=== PATIENT | female | born 1950 | race Caucasian/White ===

== ENCOUNTER 2019-01-14 09:23 | Outpatient (CLI) | payer MEDICARE, BC, SELFPAY ==
--- NOTE | 2019-01-14 09:11 | DI.RAD_ITS ---
SYMPTOM/DIAGNOSIS: RT FOOT AND SHOULDER PAIN RIGHT FOOT: Comparison is made with 04/25/10. No fracture or dislocation is seen. There are mild degenerative changes of the first MTP joint. There has been previous first metatarsal surgery. No bony erosions or heel spurs are seen. IMPRESSION: Mild degenerative changes. RIGHT SHOULDER: There is mild spurring at the AC joint and glenohumeral joint. There is some narrowing of the glenohumeral joint. The humeral head appears normally positioned. No tendon or joint space calcifications are seen. IMPRESSION: Mild to moderate degenerative changes.
== END 2019-01-14 09:43 ==
PROVIDERS: Referring Provider Family Medicine; Visit Provider Student in an Organized Health Care Education/Training Program
DX: M25.511 Pain in right shoulder (principal); M79.671 Pain in right foot; M19.071 Primary osteoarthritis, right ankle and foot; M19.011 Primary osteoarthritis, right shoulder; M21.621 Bunionette of right foot; M75.81 Other shoulder lesions, right shoulder
CPT/HCPCS: 20610; 99202; 99204; 73030; 73630; J1040

== ENCOUNTER 2019-01-22 14:09 | Day surgery (SDC) | payer MEDICARE, BC, SELFPAY ==
--- NOTE | 2019-01-23 13:51 | W.PREOPHP ---
Documented by User: SAHRA Vasquez 01/27/19 11:44 Date of service: 01/22/19 Time of Service: 12:53 Assessment and Plan (1) Lois nguyen of right foot: Current visit: No Status: Chronic The patient is given a brief overview of the anticipated surgical procedure with complications and pertinent questions which I attempt to address to the best of my knowledge. Some of the questions I review with Dr. Marte the following day with him calling the patient to outline her mobility status and possible anticipated immobilization to include a post-op shoe. In his phone conversation he outlines that if the simple condylectomy does not provide enough correction then a longer duration of limited weightbearing would be required. He assures her that at the time of surgery crutches could be dispensed for additional comfort if needed. History of Present Illness Chief Complaint: right lateral foot pain Narrative: karl is a 68-year-old female patient of Dr. Marte's who relates a long history multiple years of right lateral forefoot pain that has been increasing in severity that requires her to buy shoes that have a generous toe box to avoid applying pressure on the callus and prominence of her fifth metatarsal head. Walking to the bathroom in the middle the night barefoot is especially troublesome secondary to her pain. Dr. Marte has recommended a simple lateral condylectomy to relieve her discomfort. Pertinent Surgical Information Denies previous medical history of: stroke, TIA, [place], use of sublingual nitroglycerin, GERD, seizures, diabetes, thyroid disease, sleep apnea, liver disease, hepatitis, hematologic disorders Denies previous complications from surgery or anesthesic agents with respect to high fever, prolonged vomiting and difficulty waking up Review of Systems Constitutional Denies fever(s) and Denies headache(s) ENT Denies headache(s), Denies nasal congestion, Denies nasal discharge and Denies sore throat Cardiovascular Denies chest pain, Denies chest pain with activity, Denies palpitations, Denies dyspnea on exertion, Denies orthopnea and Denies paroxysmal nocturnal dyspnea Respiratory Denies cough, Denies excessive phlegm production, Denies pain on inspiration, Denies dyspnea on exertion and Denies wheezing Gastrointestinal Denies abdominal pain, Denies melena, Denies hematochezia, Denies nausea and Denies vomiting Genitourinary Denies hematuria, Denies urinary frequency and Denies dysuria Comments: Denies burning sensation with urination Musculoskeletal Reports as per HPI Neurologic Denies headache(s) Psychiatric Denies anxiety and Denies depression Endocrine Denies palpitations Comments: Denies any unplanned weight changes Allergic/Immunologic Denies wheezing PFSH Medical History Tailor's bunion of right foot (Chronic) Right rotator cuff tendonitis (Chronic) Actinic keratitis (Acute) Hearing loss (Acute) History of gastroesophageal reflux (GERD) (Acute) Malignant melanoma (Acute) PVD (posterior vitreous detachment), left eye (Acute) Glaucoma (Chronic) Insomnia (Chronic) Surgical History History of tonsillectomy (Chronic) History of bunionectomy (Acute) History of liver biopsy (Acute ~08/28/12) History of trabeculectomy (Acute) Biopsy of breast Cholecystectomy (08/28/12) Dilation and curettage Extraction of cataract (06/09/13) Tonsillectomy and adenoidectomy Family History Mother Essential hypertension Heart disease Personal history of malignant neoplasm Father Diabetes Brother Diabetes Essential hypertension Hyperlipidemia Personal history of malignant neoplasm Brother Diabetes Essential hypertension Personal history of malignant neoplasm Maternal Grandmother History of glaucoma Social History Smoking/Tobacco Use Status: Never Alcohol Intake: current Alcohol Intake frequency: a few times a week Alcohol type: wine Drug use: Never Substance use type: does not use Details: alcohol: t-5 Do you feel safe at home: Yes Additional Social history: pt. reports foot pain is 0/10 when sitting, 9/10 on hard surface Meds Home Medications Medication Instructions Recorded Confirmed Type Timoptic 1 drp OU QAM script 01/03/13 01/27/19 History Travatan Z 1 drp OD QPM drp 01/03/13 01/27/19 History trazodone 50 mg tablet 75 mg PO QHS tab 01/14/19 01/27/19 History cholecalciferol (vitamin D3) 2,000 unit PO DAILY 01/23/19 01/27/19 History [Vitamin D3] acetaminophen 500 mg PO Q6H PRN PRN #60 tab 01/27/19 Rx hydrocodone-acetaminophen 1 tab PO Q6H PRN PRN #8 tab 01/27/19 Rx Allergies Allergy/AdvReac Type Severity Reaction Status Date / Time dorzolamide HCl [From Cosopt] Allergy Intermediate REDNESS Unverified 01/27/19 12:25 timolol maleate [From Cosopt] Allergy Intermediate REDNESS Unverified 01/27/19 12:25 brimonidine tartrate Allergy Unknown EYE REDNESS Unverified 01/27/19 12:25 [From Alphagan P] ibuprofen [From Motrin] AdvReac Severe Verified 01/27/19 12:25 ANIMAL DANDER Allergy Unknown Uncoded 01/27/19 12:25 GIANT RAGWEED Allergy Unknown Uncoded 01/27/19 12:26 GOOSE FEATHERS Allergy Unknown Uncoded 01/27/19 12:25 Exam Const General: cooperative HENMT Throat: posterior oropharynx normal Eyes General: appearance normal, both eyes and all related structures Conjunctivae: conjunctivae normal Sclera: sclerae normal Neck Neck: no JVD Carotids: normal carotid upstroke and no bruits Resp Effort & Inspection: normal respiratory effort and able to speak in complete sentences Auscultation: clear to auscultation bilaterally, no rales, no rhonchi and no wheezes Cardio Rate: regular rate Heart Sounds: S1 normal, S2 normal and no murmurs Bruits: no abdominal aortic bruits Pulses: normal peripheral pulses Other: No pulsatile mass noted with palpation over the abdominal aorta GI Palpation: soft and no hepatosplenomegaly Auscultation: normal bowel sounds General: No CVA tenderness Extrem General: no pedal edema Other: Normal sensation to light touch with normal palpable pulses.prominent callus with palpable tender calcific density without skin breakdown. Documented by User: Jarad Marte MD 01/28/19 06:02 [facility] Medical History Tailor's bunion of right foot (Chronic) Right rotator cuff tendonitis (Chronic) Actinic keratitis (Acute) Hearing loss (Acute) History of gastroesophageal reflux (GERD) (Acute) Malignant melanoma (Acute) PVD (posterior vitreous detachment), left eye (Acute) Glaucoma (Chronic) Insomnia (Chronic) Surgical History History of tonsillectomy (Chronic) History of bunionectomy (Acute) History of liver biopsy (Acute ~08/28/12) History of trabeculectomy (Acute) Biopsy of breast Cholecystectomy (08/28/12) Dilation and curettage Extraction of cataract (06/09/13) Tonsillectomy and adenoidectomy Family History Mother Essential hypertension Heart disease Personal history of malignant neoplasm Father Diabetes Brother Diabetes Essential hypertension Hyperlipidemia Personal history of malignant neoplasm Brother Diabetes Essential hypertension Personal history of malignant neoplasm Maternal Grandmother History of glaucoma Social History Smoking/Tobacco Use Status: Never Alcohol Intake: current Alcohol Intake frequency: a few times a week Alcohol type: wine Drug use: Never Substance use type: does not use Details: alcohol: t-5 Do you feel safe at home: Yes Additional Social history: pt. reports foot pain is 0/10 when sitting, 9/10 on hard surface Meds Home Medications Medication Instructions Recorded Confirmed Type Timoptic 1 drp OU QAM script 01/03/13 01/27/19 History Travatan Z 1 drp OD QPM drp 01/03/13 01/27/19 History trazodone 50 mg tablet 75 mg PO QHS tab 01/14/19 01/27/19 History cholecalciferol (vitamin D3) 2,000 unit PO DAILY 01/23/19 01/27/19 History [Vitamin D3] acetaminophen 500 mg PO Q6H PRN PRN #60 tab 01/27/19 Rx hydrocodone-acetaminophen 1 tab PO Q6H PRN PRN #8 tab 01/27/19 Rx Allergies Allergy/AdvReac Type Severity Reaction Status Date / Time dorzolamide HCl [From Cosopt] Allergy Intermediate REDNESS Unverified 01/27/19 12:25 timolol maleate [From Cosopt] Allergy Intermediate REDNESS Unverified 01/27/19 12:25 brimonidine tartrate Allergy Unknown EYE REDNESS Unverified 01/27/19 12:25 [From Alphagan P] ibuprofen [From Motrin] AdvReac Severe Verified 01/27/19 12:25 ANIMAL DANDER Allergy Unknown Uncoded 01/27/19 12:25 GIANT RAGWEED Allergy Unknown Uncoded 01/27/19 12:26 GOOSE FEATHERS Allergy Unknown Uncoded 01/27/19 12:25
== END 2019-01-22 14:29 ==
PROVIDERS: PCP Family Medicine; Visit Provider Student in an Organized Health Care Education/Training Program
DX: R69 Illness, unspecified (principal)

== ENCOUNTER 2019-01-27 11:48 | Day surgery (SDC) | payer MEDICARE, BC, SELFPAY ==
[2019-01-27 12:35] VITALS: BP 120/78; PULSE 49; RESP 16; TEMP 35.8; O2SAT 98
[2019-01-27] MEDS: Lactated Ringers 1,000 ML 80 ML IV (13:35)
--- NOTE | 2019-01-27 13:38 | W.PM.DSUDISC ---
Discharge Plan Disposition Patient Disposition: HOME Condition: Good Discharge Details Reason For Visit: R Bunionette Deformity Attending Provider: Jarad Marte Primary Care Provider: Skye Richard Home Meds and New Rx's Prescriptions: New hydrocodone-acetaminophen 5-325 mg tablet 1 tab PO Q6H PRN PRN (Reason: pain) Qty: 8 RF: 0 acetaminophen 500 mg tablet 500 mg PO Q6H PRN PRN (Reason: pain) Qty: 60 RF: 3 Continued trazodone 50 mg tablet 75 mg PO QHS RF: 0 Travatan Z 2.5 ML drops 1 drp OD QPM RF: 0 TIMOPTIC 2.5 ML drops 1 drp OU QAM RF: 0 cholecalciferol (vitamin D3) [Vitamin D3] 2,000 unit Capsule 2,000 unit PO DAILY RF: 0 Discharge Instructions Additional Instructions: Activity: You may weight bear as tolerated. You should keep the leg elevated as much as possible. You may wiggle your toes and move your hip and knee. You should use the post-op shoe when you are up and mobilizing, but may remove it when not and move your ankle/foot as tolerated. Dressings: You should keep the initial dressing on for at least 3 days. After 3 days, you may remove it and get it wet in the shower. You should keep it covered with a light gauze dressing or wrap until follow-up. Medications: - You should take Tylenol around the clock for baseline pain. - You have been prescribed a stronger narcotic, Hydrocodone, for breakthrough pain. Follow-up: 2 weeks Referrals: Jarad Marte MD [ [facility] STAFF PHYSICIAN] - Activity:: Elevate Remove Dressings/Wound Care:: 72 hours Shower/Bathe:: 72 hours Diet:: As Tolerated Discharge Orders Discharge Orders: Discharge Order (Routine); Ordered 01/27/19 Ordered By: Jarad Marte DS: Diagnosis Discharge Diagnosis (1) Tailor's bunion of right foot: Status: Chronic
[2019-01-27] MEDS: ceFAZolin 2 GM/50 ML BAG IVPB (13:39)
[2019-01-27] MEDS: Bupivacaine 0.5% Pres-Free 30 ML VIAL (13:53)
[2019-01-27] MEDS: Bupivacaine LIPOSOME/PF 133 MG/10 ML VIAL IJ (14:07)
[2019-01-27 14:35] VITALS: BP 101/51; PULSE 68; RESP 15; TEMP 36.4; O2SAT 95
[2019-01-27 14:40] VITALS: BP 104/72; PULSE 67; RESP 17; TEMP 36.4; O2SAT 98
[2019-01-27 14:45] VITALS: BP 114/61; PULSE 66; RESP 12; TEMP 36.4; O2SAT 98
[2019-01-27 15:00] VITALS: BP 114/70; PULSE 64; RESP 16; TEMP 36.5; O2SAT 98
[2019-01-27 15:55] VITALS: BP 127/77; PULSE 65; RESP 16; TEMP 36.1; O2SAT 95
--- NOTE | 2019-01-28 08:15 | ROE_ITS ---
REPORT OF OPERATIVE PROCEDURE DATE OF SURGERY January 27, 2019 PREOPERATIVE DIAGNOSIS Right bunionette deformity. POSTOPERATIVE DIAGNOSIS Right bunionette deformity. SURGERY Right 5th metatarsal lateral condylectomy. SURGEON Jarad Marte M.D. ANESTHESIA General. ESTIMATED BLOOD LOSS Minimal. COMPLICATIONS None. DISPOSITION The patient was awakened from anesthesia and taken to the PACU in stable condition. INDICATION FOR PROCEDURE Elaine is a 68-year old I had seen for a Arabella's bunion, bunionette deformity of the right foot. It wa s causing significant pain. She had tried to modify shoe gear, but continued to have discomfort and l arge keratosis about the lateral and plantar aspect of the foot. There was a very prominent lateral 5 th metatarsal head without significant deformity of the metatarsal shaft and no increase in the inter metatarsal angle. Therefore, I offered her a lateral condylectomy. She was very insistent on being ab le to get to weightbearing as soon as possible and therefore, this procedure offered her that ability . I reviewed the risks of the procedure to include recurrence, continued pain with shoe wear, contin ued callus formation, pain, stiffness, damage to nerves and vessels, toe instability, need for repeat procedures. Despite these risks, she elected to proceed. PROCEDURE DESCRIPTION Elaine was greeted in the Preoperative holding area. Her identity was confirmed and the correct side wa s identified and marked. The consent was reviewed with the patient and signed. The history and physic al was updated. She was taken back to the Operating Room, placed in the supine position. All bony pr ominences were padded. A bump was placed underneath the right hip to internally rotate the right leg . The right leg was then prepped with ChloraPrep and draped in a standard fashion. Prophylactic antib iotics in the form of cefazolin were given. A timeout was performed for safe surgery. The proposed surgical site over the lateral border of the right foot was anesthetized with 0.5% bupiv acaine. An Esmarch tourniquet was then administered keeping it around the ankle for the duration of t he case, approximately 20 minutes. A 3-cm incision was then made overlying the lateral right foot be tween the glabrous and nonglabrous skin. The skin was incised sharply. No nerve branches were identif ied. The capsule of the 5th MTP joint was clearly identifiable. This was incised in an L-type incisio n with a dorsal lateral component and a vertical lateral component. Subperiosteally, the capsule was elevated off of the prominence of the metatarsal head and up onto the proximal phalanx. We then had e xcellent exposure of the metatarsal phalangeal joint. The prominence was identified. Using a oscillat ing saw, I then removed this lateral condyle. I did not penetrate into the shaft of the metatarsal. I then used a rongeur to rasp smooth any of the ridges around this area. There was notably a plantar o steophyte, which I did not appreciate on the x-rays. It did not seem to enjoy and involve the main a rticular portion of the joint and seemed to be in relationship to the sesamoid. Therefore, I used a r ongeur and a rasp to remove this prominence plantarly. There were no sharp or bony prominences at th is point. An x-ray was used to confirm appropriate resection of the lateral condyle without jeopardy of the metatarsal head. The toe was distracted and the medial capsule was released from within the joint using a #15-blade. T his allowed the toe to be more mobile and avoid further medial deviation of the toe. Then, using a #0 -Vicryl I imbricated the lateral capsule. Irrigation was performed of the deep tissues before this oc curred. This imbrication of the lateral capsule allowed the toe to resume a more normal position and lying with the 5th metatarsal shaft, and angulating towards the 4th toe, but not encroaching on it. T he capsule had excellent repair and part of an abductor digiti quinti was also incorporated. The woun d was once again irrigated. The deep tissues were injected with 10 cc of Exparel, which was also used in the soft tissues of the area. The skin was closed with a two buried #3-0 Vicryl, followed by #4-0 Nylon. Dressing of Xeroform, 4x4, conform and Anton wrap were applied. The Esmarch tourniquet was rele ased after the initial dressing was placed. She was awakened from anesthesia and taken to the PACU in stable condition.
== END 2019-01-27 16:50 | disposition home or self-care (01) ==
PROVIDERS: PCP Family Medicine; Visit Provider Student in an Organized Health Care Education/Training Program
PROC: (CPT 28110; principal; 2019-01-27 13:15)
DX: M21.621 Bunionette of right foot (principal); K21.9 Gastro-esophageal reflux disease without esophagitis
CPT/HCPCS: 28110; 76000; J0690

== ENCOUNTER → 2019-02-04 08:34 | Outpatient (BNVA) | payer MEDICARE, BC, SELFPAY | PROVIDERS: PCP Family Medicine; Referring Provider Family Medicine; Visit Provider Student in an Organized Health Care Education/Training Program | DX: Z47.89 Encounter for other orthopedic aftercare (principal); M21.621 Bunionette of right foot ==

== ENCOUNTER → 2019-02-09 09:47 | Outpatient (BNVA) | payer MEDICARE, BC, SELFPAY | PROVIDERS: PCP Family Medicine; Referring Provider Family Medicine; Visit Provider Student in an Organized Health Care Education/Training Program | DX: Z47.89 Encounter for other orthopedic aftercare (principal); M21.621 Bunionette of right foot ==

== ENCOUNTER → 2019-03-04 08:31 | Outpatient (BNVA) | payer MEDICARE, BC, SELFPAY | PROVIDERS: PCP Family Medicine; Referring Provider Family Medicine; Visit Provider Student in an Organized Health Care Education/Training Program | DX: Z47.89 Encounter for other orthopedic aftercare (principal); M21.621 Bunionette of right foot ==

== ENCOUNTER 2019-04-01 10:26 | Outpatient (CLI) | payer MEDICARE, BC, SELFPAY ==
--- NOTE | 2019-04-01 09:31 | DI.RAD_ITS ---
SYMPTOM/DIAGNOSIS: RT FOOT PAIN RIGHT FOOT: Comparison is made with 01/14/19. There is soft tissue swelling laterally at the distal fifth metatarsal. There has been apparent resection of the lateral portion of the fifth metatarsal head. No definite bony erosion is seen. There is no gas in the soft tissues. IMPRESSION: Lateral soft tissue swelling, presumably post surgical.
== END 2019-04-01 10:46 ==
PROVIDERS: PCP Family Medicine; Referring Provider Family Medicine; Visit Provider Student in an Organized Health Care Education/Training Program
DX: M79.671 Pain in right foot (principal); M79.89 Other specified soft tissue disorders; Z47.89 Encounter for other orthopedic aftercare
CPT/HCPCS: 73630

== ENCOUNTER → 2019-05-11 08:38 | Outpatient (BNVA) | payer MEDICARE, BC, SELFPAY | PROVIDERS: PCP Family Medicine; Referring Provider Family Medicine; Visit Provider Student in an Organized Health Care Education/Training Program | DX: Z47.89 Encounter for other orthopedic aftercare (principal); M21.621 Bunionette of right foot ==

== ENCOUNTER → 2019-06-22 07:53 | Outpatient (BNVA) | payer MEDICARE, BC, SELFPAY | PROVIDERS: PCP Family Medicine; Referring Provider Family Medicine; Visit Provider Student in an Organized Health Care Education/Training Program | DX: Z09 Encounter for follow-up examination after completed treatment for conditions other than malignant neoplasm (principal); M75.81 Other shoulder lesions, right shoulder | CPT/HCPCS: 99213 ==

== ENCOUNTER → 2019-07-27 09:04 | Outpatient (BNVA) | payer MEDICARE, BC, SELFPAY | PROVIDERS: PCP Family Medicine; Referring Provider Family Medicine; Visit Provider Student in an Organized Health Care Education/Training Program | DX: M75.81 Other shoulder lesions, right shoulder; M21.621 Bunionette of right foot | CPT/HCPCS: 20610; 99213; J1040 ==

== ENCOUNTER 2019-09-07 12:07 | Outpatient (CLI) | payer MEDICARE, BC, SELFPAY ==
--- NOTE | 2019-09-07 11:09 | DI.RAD_ITS ---
EXAM: XR FOOT RT COMPLETE INDICATION: EVAL CONTINUED RT FOOT PAIN. COMPARISON: XR foot RT complete from 04/01/2019 TECHNIQUE: 2D digital imaging was performed. FINDINGS: There are stable postsurgical changes involving the head of the right 5th metatarsal. No acute bone or joint abnormalities identified. There are degenerative changes seen in the foot. The soft tissue swelling of the lateral foot has decreased since the prior examination.
== END 2019-09-07 12:27 ==
PROVIDERS: PCP Family Medicine; Referring Provider Family Medicine; Visit Provider Student in an Organized Health Care Education/Training Program
DX: M79.671 Pain in right foot (principal); M19.071 Primary osteoarthritis, right ankle and foot; Z47.89 Encounter for other orthopedic aftercare; M21.621 Bunionette of right foot
CPT/HCPCS: 99213; 73630

== ENCOUNTER 2020-03-21 01:27 | Outpatient (CLI) | payer MEDICARE, BC, SELFPAY ==
--- NOTE | 2020-03-21 | DI.US_ITS ---
EXAM: US THYROID CLINICAL HISTORY: LT THYROID NODULE, E04.1. TECHNIQUE: Ultrasound thyroid performed using standard protocol. COMPARISON: No exams were available for comparison FINDINGS: ISTHMUS: 3 mm RIGHT LOBE: Size: 5.4 x 1.3 x 1.7 cm Echogenicity: Normal. Vascularity: Normal. Nodules: 6 x 5 x 5 millimeter circumscribed spongiform appearing nodule. No echogenic foci.. LEFT LOBE: Size: 5.3 x 1.4 x 1.4 cm Echogenicity: Normal. Vascularity: Normal. Nodules: None. OTHER FINDINGS: None. IMPRESSION: 6 millimeter benign appearing nodule of the right lobe of the thyroid. TI-RADS category 2. Normal sonographic appearance of the left thyroid gland. DATA REPOSITORY:
== END 2020-03-21 01:47 ==
PROVIDERS: PCP Family Medicine; Visit Provider Internal Medicine
DX: E04.1 Nontoxic single thyroid nodule (principal)
CPT/HCPCS: 76536

== ENCOUNTER 2022-08-07 02:43 | Outpatient (CLI) | payer MEDICARE, BC, SELFPAY ==
[2022-08-07 10:32] LABS: ALT 30 U/L (14-59); AST 23 U/L (15-37); Albumin 3.9 g/dL (3.4-5.0); Alkaline Phosphatase 61 U/L (46-116); BUN 17 mg/dL (7-18); Bilirubin, Total 0.4 mg/dL (0.2-1.0); Calcium 9.3 mg/dL (8.5-10.1); Calculated LDL 139 mg/dL (<100); Chloride 103 mmol/L (98-107); Cholesterol 235 mg/dL (<200); Estimated GFR 59.49 (mL/min/1.73m2); Glucose 105 mg/dL (74-106); HDL Cholesterol 78 mg/dL (40-60); Potassium 4.2 mmol/L (3.5-5.1); Sodium 139 mmol/L (136-145); Total Protein 7.2 g/dL (6.4-8.2); Triglyceride 94 mg/dL (<150)
== END 2022-08-07 02:44 | disposition home or self-care (01) ==
LOC: LBO 02:44
PROVIDERS: PCP Family Medicine; Visit Provider Family Medicine
DX: Z13.220 Encounter for screening for lipoid disorders (principal); Z90.49 Acquired absence of other specified parts of digestive tract; Z00.00 Encounter for general adult medical examination without abnormal findings
CPT/HCPCS: 36415; 80053; 80061

== ENCOUNTER 2022-12-25 16:02 | Outpatient (CLI) | payer MEDICARE, BC, SELFPAY ==
--- NOTE | 2022-12-25 14:45 | DI.RAD_ITS ---
Exam(s) XR FOOT LT COMPLETE EXAM: XR FOOT LT COMPLETE CLINICAL HISTORY: left foot pain, M79.673. TECHNIQUE: 2D digital imaging was performed. COMPARISON: CR XR FOOT RT COMPLETE from 09/07/2019 FINDINGS: 3 views No evidence of acute fracture or diastasis of the Lisfranc joint. Bipartite sesamoid bone noted subj acent to the great toe metatarsal head. No pes planus. No inferior calcaneal spur. No osseous lesi ons. No erosions. No osseous tarsal coalition evident. IMPRESSION: DATA REPOSITORY: RADIATION DOSE DELIVERED:
== END 2022-12-25 16:22 ==
LOC: DI 16:03
PROVIDERS: PCP Family Medicine; Visit Provider Podiatrist Foot & Ankle Surgery
DX: M79.673 Pain in unspecified foot (principal)
CPT/HCPCS: 73630

== ENCOUNTER 2024-05-15 09:55 | Outpatient (CLI) | payer MEDICARE, BC, SELFPAY ==
--- NOTE | 2024-05-15 11:40 | DI.RAD_ITS ---
Exam(s) XR KNEE LT 3V AP,LAT,RIKA EXAM: XR KNEE LT 3V AP,LAT,RIKA CLINICAL HISTORY: LT KNEE PAIN, M25.562. TECHNIQUE: 2D digital imaging was performed. Three views. COMPARISON: No exams were available for comparison FINDINGS: BONES: No acute fracture is present. No bony destructive lesion is seen. Enthesophyte at upper karley e of the patella. JOINTS: The knee is normally aligned. No joint effusion is seen. The joint spaces are maintained. No significant degenerative changes. SOFT TISSUE: Normal. IMPRESSION: No acute abnormality.. DATA REPOSITORY: RADIATION DOSE DELIVERED:
== END 2024-05-15 10:15 ==
LOC: DI 10:05
PROVIDERS: PCP Family Medicine; Visit Provider Physician Assistant Medical
DX: M25.562 Pain in left knee (principal)
CPT/HCPCS: 73562

== ENCOUNTER 2024-05-21 13:39 | Outpatient (CLI) | payer MEDICARE, BC, SELFPAY ==
--- NOTE | 2024-05-21 | DI.MRI_ITS ---
Exam(s) MR LOWER JOINT LT WO EXAM: MR LOWER JOINT LT WO CLINICAL HISTORY: Pain in lt knee, M25.562 TECHNIQUE: Multiplanar multisequence MRI of the knee was performed. COMPARISON: CR XR KNEE LT 3V AP,LAT,RIKA from 05/15/2024 FINDINGS: EFFUSION: There is a small amount of increased joint fluid. No large joint effusion. There is no Ba ker cyst in the popliteal fossa. MARROW:There is no evidence of fracture, nor bone contusion in the femoral condyles, tibial plateau, nor in the fibular head and neck. There is some bone edema in the most lateral aspect of the patella noted. PATELLOFEMORAL COMPARTMENT: The quadriceps tendon is intact. Enthesophyte is noted at the quadriceps insertion on the anterosuperior aspect of the patella. There is subcutaneous edema anterior to the patella and patellar ligament without evidence of patellar fracture, tear of the patellar ligament, n or true prepatellar bursitis. There is a small fissure evident with in the retropatellar cartilage j ust above the midline a quite ower and over the central facet region. This is best evident on T2 fat sat axial image numbers 26. Otherwise there is no significant thinning of the retropatellar cartila ge. There is no subarticular edema nor degenerative cysts nor osteochondral defect at this level and this finding is 1.3 cm medial to the bone edema seen in the lateral aspect of the patella. There is no intraosseous signal to suggest recent lateral patellar dislocation and is no evidence of tear of the medial patellar retinaculum. There is some mild increased signal evident in the anterior aspect of the lateral patellar retinaculum adjacent to the area increase intra osseous signal in the lateral patella. CRUCIATE LIGAMENTS: The anterior cruciate ligament is intact.The posterior cruciate ligament is intac t. MEDIAL COMPARTMENT/MEDIAL MENISCUS: There are no tears of the medial meniscus evident.. There is mild cartilage thinning over the main weight-bearing surface of the medial femoral condyle b ut no large chondral defects nor osteochondral defects and there is no subarticular edema in the medi al compartment nor marginal osteophytes. MEDIAL COLLATERAL LIGAMENT: Intact LATERAL COMPARTMENT/LATERAL MENISCUS: There is no evidence of lateral meniscal tear.There is mild uni form thinning of the articular cartilage in the lateral compartment. No large chondral defects nor o steochondral defects nor degenerative subarticular edema and there are no marginal osteophytes. ILIOTIBIAL BAND: Intact LATERAL COLLATERAL LIGAMENT COMPLEX: The fibular collateral ligament is intact. The biceps femoris t endon is intact.Popliteus muscle and tendon are intact. IMPRESSION: 1. There are no meniscal tears, cruciate ligament tears, nor significant collateral ligament tears. There are only mild-minimal degenerative changes in the medial lateral compartments. 2. There are 2 findings in the patellofemoral compartment. Although there is no significant thinning of the retropatellar cartilage, there is a slightly above the equator focal fissure in the retropate llar cartilage over the mid facet region, not associated with subjacent bone edema in the posterior p atella at this level. Also no osteochondral defect at this level. 3. The 2nd finding in the patellofemoral compartment is laterally where there is a geographic area of bone edema in the most lateral aspect of the patella and adjacent to this is some abnormal signal wi thin the most anterior aspect of the lateral patellar retinaculum at this level. There is also a sub cutaneous edema at this level as well as thin band of subcutaneous edema anterior to the patella and patellar ligament. Suspect possible recent trauma over this region on the anterolateral aspect of th e knee. There is no evidence of patellar displacement and no evidence of tear of the patellar ligame nt nor of the quadriceps tendon. 4. There is a small joint effusion. No obvious loose intra-articular bodies. No evidence of Rockwell c yst in the popliteal fossa. DATA REPOSITORY:
== END 2024-05-21 13:59 ==
LOC: DI 13:43
PROVIDERS: PCP Family Medicine; Visit Provider Physician Assistant Medical
DX: M76.892 Other specified enthesopathies of left lower limb, excluding foot (principal)
CPT/HCPCS: 73721

== ENCOUNTER → 2024-06-12 07:51 | Outpatient (BNVA) | payer MEDICARE, BC, SELFPAY | PROVIDERS: PCP Family Medicine; Referring Provider Family Medicine; Visit Provider Physician Assistant | DX: S80.02XA Contusion of left knee, initial encounter (principal); W19.XXXA Unspecified fall, initial encounter; W54.1XXA Struck by dog, initial encounter; Y93.01 Activity, walking, marching and hiking | CPT/HCPCS: 99203 ==

== ENCOUNTER 2025-03-10 09:53 | Outpatient (CLI) | payer MEDICARE, BC, SELFPAY ==
[2025-03-10 14:32] LABS: HCT 34.9 % (36.0-46.0); HGB 11.6 g/dL (11.2-15.7); MCH 29.4 pg (27.0-33.0); MCHC 33.2 % (32.0-36.0); MCV 89 fL (80-95); MPV 9.5 fL (8.0-11.0); Platelet Count 167 10^3/uL (130-400); RBC 3.94 10^6/uL (3.93-5.22); RDW 12.3 % (11.7-14.6); RDW-SD 40.1 fL; WBC 4.63 10^3/uL (4.4-10.8)
[2025-03-10 14:51] LABS: ALT 26 U/L (14-59); AST 20 U/L (15-37); Albumin 3.7 g/dL (3.4-5.0); Alkaline Phosphatase 59 U/L (46-116); Anion Gap 9.5 mmol/L (3-11); BUN 20 mg/dL (7-18); Bilirubin, Total 0.5 mg/dL (0.2-1.0); CO2 26.5 mmol/L (21.0-32.0); Calcium 9.5 mg/dL (8.5-10.1); Calculated LDL 134 mg/dL (<100); Chloride 106 mmol/L (98-107); Cholesterol 228 mg/dL (<200); Estimated GFR 66.67 (mL/min/1.73m2); Glucose 132 mg/dL (74-106); HDL Cholesterol 68 mg/dL (>or=50); Potassium 3.8 mmol/L (3.5-5.1); Sodium 142 mmol/L (136-145); Total Protein 6.5 g/dL (6.4-8.2); Triglyceride 133 mg/dL (<150)
== END 2025-03-10 09:54 | disposition home or self-care (01) ==
PROVIDERS: PCP Family Medicine; Visit Provider Family Medicine
DX: Z13.0 Encounter for screening for diseases of the blood and blood-forming organs and certain disorders involving the immune mechanism (principal); Z13.220 Encounter for screening for lipoid disorders; Z00.00 Encounter for general adult medical examination without abnormal findings
CPT/HCPCS: 36415; 80053; 80061; 85027